=== PATIENT | female | born 1950 | race Caucasian/White ===

== ENCOUNTER 2017-05-14 09:10 | Day surgery (SDC) | payer OTHER, MEDICARE ==
[~2017-05-14] VITALS: Ht 170.2 cm; Wt 81.8 kg
[~2017-05-14 09:10] MED LIST: AMLO10 PO; ASPI81CH; ATOR10; BENAML20/5; BUPR75 PO; BUSP15 PO; CALCIUM PO; CHOL10002 PO; CYAN100 PO; ERGO400 PO; FISH1000 PO; HORMONE; LAMO100 PO; LATUDA60 MG; NITR.4SL; OXYACE5T PO; PARO20 PO; PROM25 PO; Prozac20 MG PO; ROSU5 PO; RXOXYACE PO; TRAZ50
== END 2017-05-14 11:40 | disposition home or self-care (01) ==
LOC: ORSCSDS 09:10
PROVIDERS: Surgery
PROC: 0DBM8ZX Excision of Descending Colon, Via Natural or Artificial Opening Endoscopic, Diagnostic (ICD-10-PCS; principal; 2017-05-14 10:30)
DX: Z12.11 Encounter for screening for malignant neoplasm of colon (principal); D12.4 Benign neoplasm of descending colon; Z86.010 Personal history of colon polyps; I10 Essential (primary) hypertension; E78.5 Hyperlipidemia, unspecified; F32.9 Major depressive disorder, single episode, unspecified; J44.9 Chronic obstructive pulmonary disease, unspecified; Z79.899 Other long term (current) drug therapy
CPT/HCPCS: 88305; J7120

== ENCOUNTER 2018-06-17 08:24 | Day surgery (SDC) | payer OTHER, MEDICARE ==
[~2018-06-17] VITALS: Ht 172.7 cm; Wt 69.7 kg
[~2018-06-17 08:24] MED LIST changes: +PROAIR RESPICL90 MCG INH
== END 2018-06-17 10:34 | disposition home or self-care (01) ==
LOC: ORSCSDS 08:24
PROVIDERS: Surgery
PROC: 0DJD8ZZ Inspection of Lower Intestinal Tract, Via Natural or Artificial Opening Endoscopic (ICD-10-PCS; principal; 2018-06-17 10:00)
DX: Z12.11 Encounter for screening for malignant neoplasm of colon (principal); Z86.010 Personal history of colon polyps; I10 Essential (primary) hypertension; E78.5 Hyperlipidemia, unspecified; F32.9 Major depressive disorder, single episode, unspecified; F31.9 Bipolar disorder, unspecified; J44.9 Chronic obstructive pulmonary disease, unspecified; Z87.891 Personal history of nicotine dependence; Z79.899 Other long term (current) drug therapy
CPT/HCPCS: J7120

== ENCOUNTER → 2019-07-13 | Outpatient (CLI) | payer OTHER, MEDICARE ==
[2019-07-15 15:10] LABS: HPV 16 Negative (Negative); HPV 18 Negative (Negative); HPV OTHER HR TYPES Negative (Negative)
== END ==
LOC: LAB SHORT 15:30 → LAB 15:30
PROVIDERS: Obstetrics & Gynecology
DX: Z01.419 Encounter for gynecological examination (general) (routine) without abnormal findings (principal)
CPT/HCPCS: 87624; G0123

== ENCOUNTER 2019-12-22 10:54 | Observation (INO) | payer OTHER, MEDICARE ==
[~2019-12-22] VITALS: Ht 172.7 cm; Wt 83.6 kg
[2019-12-22 11:28] LABS: BASOPHILS ABSOLUTE AUTO 0.05 K/mm3 (0.00-0.23); BASOPHILS PERCENT AUTO 1 % (0-2); EOSINOPHILS ABSOLUTE AUTO 0.32 K/mm3 (0.00-0.68); EOSINOPHILS PERCENT AUTO 5 % (0-6); Hematocrit 39.3 % (33.0-51.0); Hemoglobin 12.6 g/dL (11.5-16.0); IMMATURE GRAN ABSOLUTE AUTO 0.02 K/mm3 (0.00-0.10); IMMATURE GRAN PERCENT AUTO 0 % (0-1); LYMPHOCYTES ABSOLUTE AUTO 2.32 K/mm3 (0.84-5.20); LYMPHOCYTES PERCENT AUTO 38 % (21-46); MONOCYTES ABSOLUTE AUTO 0.81 K/mm3 (0.16-1.47); MONOCYTES PERCENT AUTO 13 % (4-13); Mean Corpuscular HGB 30.6 pg (26.0-34.0); Mean Corpuscular HGB Conc 32.1 g/dL (31.5-36.5); Mean Corpuscular Volume 95 fL (80-100); Mean Platelet Volume 12.2 fL (9.1-12.4); NEUTROPHILS ABSOLUTE AUTO 2.54 K/mm3 (1.96-9.15); NEUTROPHILS PERCENT AUTO 42 % (41-73); Platelet Count 172 K/mm3 (150-400); RDW Coefficient Variation 13.7 % (11.7-14.2); RDW Standard Deviation 48.5 fL (35.1-46.3); Red Blood Cell Count 4.12 M/mm3 (3.80-5.20); White Blood Cell Count 6.06 K/mm3 (4.00-11.30)
[2019-12-22 11:43] LABS: International Normalized Ratio 1.05; Prothrombin Time Results 11.2 Sec (9.7-11.5)
[2019-12-22 11:53] LABS: Albumin, Blood 3.6 g/dL (3.4-5.0); Albumin/Globulin Ratio 1.1 (0.8-1.8); Bilirubin, Total 0.5 mg/dL (0.1-1.0); Bun/Creatinine Ratio 17.2 (12.0-20.0); Calcium, Blood 9.4 mg/dL (8.5-10.1); Creatinine, Blood 1.16 mg/dL (0.40-1.00); Globulin, Blood 3.4 g/dL (2.2-4.0); Potassium, Blood 4.8 mmol/L (3.5-5.5)
[2019-12-22] MEDS ORDERED: CLONAZEPAM1 MG PO (11:59)
[2019-12-22] MEDS ORDERED: DONE5 PO ×2 (12:00)
[2019-12-22] MEDS ORDERED: SEROQUEL100 MG PO (12:00)
[2019-12-22] MEDS ORDERED: AMLODIPINE-BEN1 EAC2 PO (12:01)
[2019-12-22] MEDS ORDERED: LATUDA40 MG PO (12:01)
[2019-12-22] MEDS ORDERED: PROZAC40 MG PO (12:01)
[2019-12-22] MEDS ORDERED: ATOR10 PO (12:01)
[2019-12-22] MEDS ORDERED: LAMICTAL200 MG PO (12:02)
[2019-12-22] MEDS ORDERED: INDERAL XL120 MG PO (12:03)
[2019-12-22] MEDS ORDERED: LATANOPROST2.5 M1 BOTHEYES (12:04)
[2019-12-22 12:07] LABS: Source, Urine Clean Catch
[2019-12-22] MEDS ORDERED: NICORETTE4 M1 BC (12:08)
[2019-12-22 12:17] LABS: Bilirubin, Urine Neg (Neg); Blood, Urine Neg (Neg); Glucose Qualitative, Urine Neg (Neg); Ketones, Urine Neg (Neg); Leukocyte Esterase, Urine 1+ (Neg); Nitrite, Urine Neg (Neg); Protein, Urine Neg (Neg); Specific Gravity, Urine 1.005 (1.003-1.022); Urobilinogen, Urine NORM (Normal); pH, Urine 6.5 (5.0-8.0)
[2019-12-22 12:41] LABS: Appearance, Urine Clear (Clear); Color, Urine Pale Yellow (P-Yellow)
[2019-12-22 12:43] LABS: Red Blood Cells, Urine 0-2 /hpf (0-2); White Blood Cells, Urine 0-2 /hpf (0-5)
[2019-12-22 12:44] LABS: Bacteria Rare /hpf; Squamous Epithelial Cells Few /hpf (Few)
--- NOTE | 2019-12-22 16:32 | NUR ---
Echocardiogram completed.
--- NOTE | 2019-12-22 18:16 | NUR ---
SHIFT SUMMARY PT ALERT AND ORIENTED. BP ELEVATED AND HR BRADYCARDIA IN THE 30'S. DR. MUNROE CALLED AND NOTIFIED ABOUT BP. NEW ORDERS PROVIDED AND PT MEDICATED WITH IMPROVEMENT IN BP. HR NOW IN THE 40'S. PT REPORTS HER ONLY STROKE LIKE SYMPTOMS INCLUDE BLURRED VISION AND SLURRED SPEECH. 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 AT BEDSIDE. WILL CONTINUE TO MONITOR AND REPORT TO ONCOMING RN.
--- NOTE | 2019-12-23 04:50 | NUR ---
SHIFT SUMMARY LYING IN LOW FOWLERS WITH EYES CLOSED. HAS RESTED WELL THIS SHIFT AFTER CHANGING ROOMS. DENIES PAIN OR DISCOMFORT. LEFT SIDED DROOP NOT IMPROVED AT THIS TIME. DENIES FURTHER NEEDS OR WANTS AT THIS TIME. SAFETY MEASURES IN PLACE. WILL CONTINUE TO MONITOR AND GIVE HAND OFF TO ONCOMING SHIFT USING SBAR.
[2019-12-23 04:51] LABS: Bun/Creatinine Ratio 16.8 (12.0-20.0); Creatinine, Blood 1.19 mg/dL (0.40-1.00); Potassium, Blood 4.5 mmol/L (3.5-5.5)
--- NOTE | 2019-12-23 06:19 | NUR ---
SPOUSE AT BEDSIDE, UPDATE GIVEN. DENEIS FURTHER NEEDS OR WANTS AT THIS TIME. SAFETY MEASURES IN PLACE. WILL CONTINUE TO MONITOR.
--- NOTE | 2019-12-23 10:32 | NUR ---
ASSUME CARE: PT MORE ALERT AT BASELINE THIS MORNING PER AT BEDSIDE. NO FACIAL DROOPING/SLURRED SPEECH NOTED, PT WAS ABLE TO ANSWER QUESTIONS APPROPRIATELY, DENIES ANY PAIN. VITALS HRR SINUS JULIAN 54, BP SYSTOLIC 150'S, SATS ABOVE 95% ON RA, AFEBRILE. PT TOOK MEDS THIS MORNING WITH NO ISSUES. WORKED WITH THERAPY WAS ABLE TO AMBULATE AND TRANSFER SAFELY VIA WALKER. WILL MONITOR
[2019-12-23] MEDS ORDERED: ASPI81CH PO (11:48)
--- NOTE | 2019-12-23 13:20 | NUR ---
PT DISCHARGED TO HOME TODAY WITH DISCHARGE ORDERS AND HOME HEALTH SERVICE. PT TO CONTINUE MEDS AT HOME, WELL THERAPY. ALL BELONGINGS SENT WITH PT, PARK AT BEDSIDE DISCLOSED ALL DISCHARGE INSTRUCTIONS AND FOLLOW UP VISITS WITH PRIMARY CARE PROVIDER. PT WAS ACCOMPANIED BY [facility] VIA WHEELCHAIR.
== END 2019-12-23 12:22 | disposition home health service (06) ==
LOC: ER 10:54 → PCU 10:55 → ER 15:08 → PCU 15:08
PROVIDERS: Emergency Medicine; Nurse Practitioner Acute Care; ADMIT Internal Medicine
DX: I63.9 Cerebral infarction, unspecified (principal); I12.9 Hypertensive chronic kidney disease with stage 1 through stage 4 chronic kidney disease, or unspecified chronic kidney disease; N18.3 Chronic kidney disease, stage 3 (moderate); F31.9 Bipolar disorder, unspecified; E78.5 Hyperlipidemia, unspecified; G31.83 Neurocognitive disorder with Lewy bodies; F02.80 Dementia in other diseases classified elsewhere, unspecified severity, without behavioral disturbance, psychotic disturbance, mood disturbance, and anxiety; Z88.2 Allergy status to sulfonamides; Z88.8 Allergy status to other drugs, medicaments and biological substances; Z79.82 Long term (current) use of aspirin; Z79.899 Other long term (current) drug therapy; Z87.891 Personal history of nicotine dependence
CPT/HCPCS: 36415; 70450; 70496; 70498; 70551; 80048; 80053; 81001; 83735; 84443; 84484; 85025; 85610; 87086; 93005; 93010; 93306; 96374; 97112; 97116; 97161; 97165; 97530; 99285-25; A9270-GY; G0378; J0360; J7030; Q9967

== ENCOUNTER 2021-09-11 02:18 | Observation (INO) | payer OTHER, MEDICARE ==
[~2021-09-11] VITALS: Ht 177.8 cm; Wt 104.3 kg
[~2021-09-11 02:18] MED LIST changes: +AMLODIPINE-BEN1 EAC2 PO; +ASPI81CH PO; +ATOR10 PO; +CLONAZEPAM1 MG PO; +DONE5 PO; +INDERAL XL120 MG PO; +LAMICTAL200 MG PO; +LATANOPROST2.5 M1 BOTHEYES; +LATUDA40 MG PO; +NICORETTE4 M1 BC; +PROZAC40 MG PO; +SEROQUEL100 MG PO
[2021-09-11 03:00] LABS: BASOPHILS ABSOLUTE AUTO 0.04 K/mm3 (0.00-0.23); BASOPHILS PERCENT AUTO 1 % (0-2); EOSINOPHILS ABSOLUTE AUTO 0.15 K/mm3 (0.00-0.68); EOSINOPHILS PERCENT AUTO 3 % (0-6); Hematocrit 35.5 % (33.0-51.0); Hemoglobin 11.6 g/dL (11.5-16.0); IMMATURE GRAN ABSOLUTE AUTO 0.01 K/mm3 (0.00-0.10); IMMATURE GRAN PERCENT AUTO 0 % (0-1); LYMPHOCYTES PERCENT AUTO 37 % (21-46); MONOCYTES ABSOLUTE AUTO 0.63 K/mm3 (0.16-1.47); MONOCYTES PERCENT AUTO 14 % (4-13); Mean Corpuscular HGB 30.8 pg (26.0-34.0); Mean Corpuscular HGB Conc 32.7 g/dL (31.5-36.5); Mean Corpuscular Volume 94 fL (80-100); NEUTROPHILS ABSOLUTE AUTO 1.94 K/mm3 (1.96-9.15); NEUTROPHILS PERCENT AUTO 45 % (41-73); Platelet Count 155 K/mm3 (150-400); RDW Coefficient Variation 13.2 % (11.7-14.2); RDW Standard Deviation 45.9 fL (35.1-46.3); Red Blood Cell Count 3.77 M/mm3 (3.80-5.20); White Blood Cell Count 4.37 K/mm3 (4.00-11.30)
[2021-09-11 03:07] LABS: Source, Urine Clean Catch
[2021-09-11 03:22] LABS: Bilirubin, Urine Neg (Neg); Blood, Urine Neg (Neg); Glucose Qualitative, Urine Neg (Neg); Ketones, Urine Neg (Neg); Leukocyte Esterase, Urine Neg (Neg); Nitrite, Urine Neg (Neg); Protein, Urine Neg (Neg); Urobilinogen, Urine NORM (Normal)
[2021-09-11 03:25] LABS: Albumin, Blood 3.1 g/dL (3.4-5.0); Albumin/Globulin Ratio 1.1 (0.8-1.8); Bilirubin, Total 0.2 mg/dL (0.1-1.0); Bun/Creatinine Ratio 26.8 (12.0-20.0); Calcium, Blood 8.4 mg/dL (8.5-10.1); Creatinine, Blood 0.97 mg/dL (0.40-1.00); Globulin, Blood 2.9 g/dL (2.2-4.0); Potassium, Blood 4.5 mmol/L (3.5-5.5)
[2021-09-11 03:35] LABS: Appearance, Urine Clear (Clear); Color, Urine Yellow (P-Yellow)
[2021-09-11] MEDS ORDERED: PRIM250 PO (05:08)
[2021-09-11] MEDS ORDERED: VITAMIN D5000 UNIT PO (05:09)
[2021-09-11] MEDS ORDERED: LOPE2C PO (05:09)
[2021-09-11] MEDS ORDERED: FOLI1 PO (05:10)
--- NOTE | 2021-09-11 15:57 | NUR ---
SHIFT SUMMARY PT A&OX3, VSS/RA, PLEASANT & COOPERATIVE WITH CARE, FOLLOWS DIRECTIONS WELL. STAND PIVOT TTWB, TO CHAIR/BED/BSC, WITH FWW & GB. HA PO. VOIDING WELL, BM TODAY. WILL REPORT TO ONCOMING NOC RN.
--- NOTE | 2021-09-12 05:53 | NUR ---
SHIFT SUMMARY PT REPORTS MINIMAL PAIN ON R HIP, AMBULATES TOE TOUCH WB AT THIS TIME. PAIN MANAGED WITH 5MG NORCO, MEDICATED ONCE T/O SHIFT. PT APPEARS TO BE NOT CONSISTENT IN FOLLOWING WT BEARIGN PRECAUTION BUT EASILY REDIRECTED. AOX3, PLEASANTLY CONFUSE. HX DEMENTIA. ATTEMPT TO GET OUT OF BED LAST NIGHT, APPEARS TO BE UNSTEADY WITH GAIT/WOBBLY. BED ALARM IN PLACE FOR SAFETY. PT DENIES N/T. VSS. MILDLY HYPERTENSIVE. DENIES CHEST PAIN AND SOB. TOLERATING PO INTAKE. DENIES N/V. SALINE LOCK. CALL LIGHT WITHIN REACH. WILL CONTINUE TO MONITOR AND WILL PROVIDE REPORT TO ONCOMING NURSE.
--- NOTE | 2021-09-12 19:42 | NUR ---
SHIFT SUMMARY PT A&O2-3/FORGETFUL/PLEASANT & COOPERATIVE WITH CARE. DENIES PAIN. AMB FWW & GB, NEEDS WB CUES CONSISTENTLY, UP TO CHAIR T/O SHIFT, USES BSC. VOIDING WELL, 2 LOOSE BMS TODAY, IMMODIUM GIVEN. HA PO. REPORT PROVIDED TO WANG LEAHY.
--- NOTE | 2021-09-13 05:12 | NUR ---
0512 *PROVIDER PLEASE CALL* PT , HERMELINDA, WOULD LIKE PROVIDER TO CALL HIM. HE WILL NOT BE ABLE TO COME INTO [facility] TODAY. HE IS THE PT'S POA. [phone].
--- NOTE | 2021-09-13 05:17 | NUR ---
SUMMARY NO NEW ISSUES NOTED. PT HAS BEEN COMFORTABLE THROUGHOUT SHIFT. PT HAS BEEN SLEEPING WELL. PT CURRENTLY SLEEPING IN NO DISTRESS. CALL LIGHT IN REACH.
--- NOTE | 2021-09-13 11:00 | NUR ---
PATIENT HAS BEEN NAUSEOUS MOST OF THE MORNING AND HAS HAD ONE EPISODE OF DRY HEAVING. PATIENT RECIEVED IV ZOFRAN AND 81 MG ASA FOR HER HEADACHE. PATIENT WAS STILL NAUSEOUS AND CURLED UP ON THE BED AFTER [address] AZAR AND HE STATED "PUT IN IV PHENERGAN 12.5-25MG Q6 PRN FOR NAUSEA. I ALSO PUT IN A MIGRAINE MEDICATION FOR HER TO TAKE IN PILL FORM". PATIENT RECIEVED 12.5MG OF PHENERGAN AND HAS TAKEN THE IMITREX FOR THE MIGRAINE AND IS STILL COMPLAINING OF NAUSEA AND HEADACHE. WHO IS A PA IS IN THE ROOM AT BEDSIDE. HE REQUESTED TO SEE DR. AZAR SOON POSSIBLE. PATIENT IS LAYING IN BED STILL CURLED UP. CALL LIGHT WITHIN REACH.
--- NOTE | 2021-09-13 16:02 | NUR ---
SHIFT SUMMARY: PATIENT THIS MORNING WAS VERY NAUSEOUS AND WAS HAVING A MIGRAINE. PATIENT RECIEVED TYLENOL, ASPIRIN, AND IMITREX WELL IV ZOFRAN AND PHENERGAN. SINCE THEN SHE HAS NOT BEEN NAUSEOUS OR HAVING A MIGRAINE. SHE IS TOLERATING PO INTAKE AND IS VOIDING. PATIENT DENIES ANY PAIN ANYWHERE ELSE. SHE IS A SBA WITH FWW AND GAIT BELT. CALLS APPROPRIATELY. CALL LIGHT WITHIN REACH. IS AT BEDSIDE. THE PLAN IS TO BE DISCHARGED HOME TOMORROW WITH HOME HEALTH.
--- NOTE | 2021-09-14 05:27 | NUR ---
SUMMARY PT HAS SLEPT WELL THIS SHIFT. PT DID WAKE UP WITH A THEODORE AND WAS TX WITH RELIEF. NO OTHER ISSUES NOTED. PT IS EAGER TO GO HOME. CALL LIGHT IN REACH.
[2021-09-14] MEDS ORDERED: ACET325 PO (13:05)
[2021-09-14] MEDS ORDERED: ONDA4 PO (13:06)
[2021-09-14] MEDS ORDERED: SUMA25 PO (13:07)
--- NOTE | 2021-09-14 13:25 | NUR ---
DISCHARGE SUMMARY PT ADMITTED FOR POSSIBLY PELVIC FRACTURE AFTER EXPERIENCING A FALL. TREATED NON SURGICALLY AND DC'D HOME WITH HOME HEALTH. ONE INSTANCE OF EMESIS THIS SHIFT AND TREATED PER EMR. NO COMPLAINTS OF PAIN. VSS. A/O X3; PLEASANT AND COOPERATIVE WITH CARE. DC'D HOME WITH .
== END 2021-09-14 13:22 | disposition home or self-care (01) ==
LOC: ER 02:18 → SURS 02:19 → MEDS 02:19 → SURS 09:30
PROVIDERS: Emergency Medicine; ADMIT Family Medicine
DX: S32.491A Other specified fracture of right acetabulum, initial encounter for closed fracture (principal); W19.XXXA Unspecified fall, initial encounter; R51.9 Headache, unspecified; R11.0 Nausea; I10 Essential (primary) hypertension; G31.83 Neurocognitive disorder with Lewy bodies; F02.80 Dementia in other diseases classified elsewhere, unspecified severity, without behavioral disturbance, psychotic disturbance, mood disturbance, and anxiety; E78.5 Hyperlipidemia, unspecified; F41.1 Generalized anxiety disorder; F31.9 Bipolar disorder, unspecified; Z87.891 Personal history of nicotine dependence; Z88.2 Allergy status to sulfonamides; Z88.8 Allergy status to other drugs, medicaments and biological substances; Z79.82 Long term (current) use of aspirin; Z79.899 Other long term (current) drug therapy
CPT/HCPCS: 70450; 72125; 72131; 72192; 80053; 81003; 85025; 96372; 96374; 96375; 96376; 97110; 97116; 97162; 97166; 97530; 97535; 99285-25; A9270; G0378; J0360; J1650; J2405; J2550; J3010

== ENCOUNTER → 2022-10-11 | Outpatient (CLI) | payer OTHER, MEDICARE ==
[~2022-10-11] MED LIST changes: +ACET325 PO; +FOLI1 PO; +LOPE2C PO; +ONDA4 PO; +PRIM250 PO; +SUMA25 PO; +VITAMIN D5000 UNIT PO
[2022-10-11 16:21] LABS: Source, Urine Voided
[2022-10-11 17:59] LABS: Appearance, Urine Clear (Clear); Bilirubin, Urine Neg (Neg); Blood, Urine Neg (Neg); Color, Urine Amber (P-Yellow); Glucose Qualitative, Urine Neg (Neg); Ketones, Urine Neg (Neg); Leukocyte Esterase, Urine 2+ (Neg); Nitrite, Urine Neg (Neg); Protein, Urine 2+ (Neg); Specific Gravity, Urine 1.015 (1.003-1.022); Urobilinogen, Urine 1+ (Normal); pH, Urine 6.5 (5.0-8.0)
[2022-10-11 18:18] LABS: Amorphous Light (0-Heavy); Bacteria Mod /hpf; Red Blood Cells, Urine 0-2 /hpf (0-2); Squamous Epithelial Cells Mod /hpf (Few)
== END | disposition home or self-care (01) ==
LOC: LAB SHORT 15:57 → LAB 15:57
PROVIDERS: Family Medicine
DX: R30.0 Dysuria (principal)
CPT/HCPCS: 81001; 87086